=== PATIENT | female | born 1970 | race African-American/Black ===

== ENCOUNTER 2016-05-17 10:02 | Emergency (ER) | payer SELFPAY ==
--- NOTE | 2016-05-17 10:43 | ER Document Report ---
HPI - HPI Patient complains to provider of: headache, sore hip, flu like symptoms Onset: Other - LEACH last week, sore hip this am Pain Level: 4 Context: Patient presents to the emergency department with complaints of sinus headache feeling flulike , and sore hip. Patient reports she woke up this morning her hip was sore. She reports she thinks she slept on it wrong but denies pain at this time. No c/o trauma. Patient also reports she has a sinus headache. She reports she took Goody powders and it went away. Patient denies other symptoms such as fever vomiting diarrhea but reports some nausea earlier but none now. Patient is asymptomatic now. Associated Symptoms: Headache, Nausea. denies: Fever, Vomiting Exacerbated by: Denies Relieved by: Denies Similar symptoms previously: No Recently seen / treated by doctor: No - REPRODUCTIVE Reproductive: DENIES: : - DERM Skin Color: Normal, [place] Past Medical History - General Information source: Patient Last Menstrual Period: 05/15/16 - Social History Smoking Status: Current Every Day Smoker Cigarette use (# per day): Yes - 1ppd Chew tobacco use (# tins/day): No Frequency of alcohol use: None Drug Abuse: None Occupation: call center Lives with: Family Family History: Other - Migraines - Past Medical History Cardiac Medical History: Reports: Other - palpitations Neurological Medical History: Reports: Hx Migraine Renal/ Medical History: Denies: Hx Peritoneal Dialysis GI Medical History: Reports: Hx Irritable Bowel Infectious Medical History: Reports: Hx HIV - no meds in 2 months, has appt with new ID this month. last CD4 1600 Past Surgical History: Reports: Hx Section, Hx Gynecologic Surgery - novasure - Immunizations Immunizations up to date: Yes Hx Diphtheria, Pertussis, Tetanus Vaccination: Yes Vertical Provider Document - CONSTITUTIONAL Agree With Documented VS: Yes Exam Limitations: No Limitations General Appearance: WD/WN, No Apparent Distress - nontoxic looking - INFECTION CONTROL TRAVEL OUTSIDE OF THE U.S. IN LAST 30 DAYS: No - HEENT HEENT: Atraumatic, Normal ENT Exam, Normocephalic, PERRLA. negative: Conjuctival Injection, Pharyngeal Exudate, Pharyngeal Erythema, Tympanic Membrane Red - NECK Neck: Normal Inspection, Supple. negative: Lymphadenopathy-Left, Lymphadenopathy-Right - RESPIRATORY Respiratory: Breath Sounds Normal, No Respiratory Distress O2 Sat by Pulse Oximetry: 100 - CARDIOVASCULAR Cardiovascular: Regular Rate, Regular Rhythm - GI/ABDOMEN Gastrointestinal: Abdomen Soft, Abdomen Non-Tender - MUSCULOSKELETAL/EXTREMETIES Musculoskeletal/Extremeties: MAEW, FROM, Non-Tender - NEURO Level of Consciousness: Awake, Alert, Appropriate Motor/Sensory: No Motor Deficit - DERM Integumentary: Warm, Dry Course - Vital Signs Vital signs: Temp Pulse Resp BP Pulse Ox 98.2 F 72 20 120/78 100 05/17/16 10:13 05/17/16 10:13 05/17/16 10:13 05/17/16 10:13 05/17/16 10:13 Discharge - Discharge Clinical Impression: Sinus pressure, sore hip Headache Qualifiers: Headache type: unspecified Headache chronicity pattern: unspecified pattern Intractability: not intractable Qualified Code(s): R51 - Headache Condition: Stable Disposition: HOME, SELF-CARE Additional Instructions: *You have been evaluated for sinus pressure, headache, sore hip *Take over the counter antihistamine as discussed *Take goody powders for your headache *Good hand washing *Follow-up with your primary care provider within one week for recheck *Return to ED for worsening condition change, needs Forms: Return to Work
[2016-05-17 11:08] VITALS: BP 110/69
== END 2016-05-17 11:08 | disposition home or self-care (01) ==
LOC: ER 10:02
DX: R51 Headache (principal); M25.559 Pain in unspecified hip; R11.0 Nausea; F17.210 Nicotine dependence, cigarettes, uncomplicated; Z21 Asymptomatic human immunodeficiency virus [HIV] infection status
CPT/HCPCS: 99283

== ENCOUNTER 2016-06-25 11:27 | Emergency (ER) | payer SELFPAY ==
--- NOTE | 2016-06-25 12:08 | ER Document Report ---
ED Medical Screen (RME) - General Stated Complaint: BACK PAIN Notes: 46 yo female c/o bladder pressure, lower back pain x 4 days. + dysuria. no fever. no vomiting TRAVEL OUTSIDE OF THE U.S. IN LAST 30 DAYS: No - Related Data Allergies/Adverse Reactions: aspirin [Aspirin] Allergy (Verified 09/14/14 20:23) Sulfa (Sulfonamide Antibiotics) Allergy (Verified 09/14/14 20:23) Past Medical History Neurological Medical History: Reports: Hx Migraine Renal/ Medical History: Denies: Hx Peritoneal Dialysis GI Medical History: Reports: Hx Irritable Bowel Infectious Medical History: Reports: Hx HIV - no meds in 2 months, has appt with new ID this month. last CD4 1600 Past Surgical History: Reports: Hx Section, Hx Gynecologic Surgery - novasure - Immunizations Immunizations up to date: Yes Hx Diphtheria, Pertussis, Tetanus Vaccination: Yes Physical Exam - Vital signs Vitals: Temp Pulse Resp BP Pulse Ox 98.3 F 98 16 116/78 98 06/25/16 11:59 06/25/16 11:59 06/25/16 11:59 06/25/16 11:59 06/25/16 11:59 Course - Vital Signs Vital signs: Temp Pulse Resp BP Pulse Ox 98.3 F 98 16 116/78 98 06/25/16 11:59 06/25/16 11:59 06/25/16 11:59 06/25/16 11:59 06/25/16 11:59
[2016-06-25 12:56] LABS: APPEARANCE,URINE CLOUDY; BILIRUBIN,URINE NEGATIVE (NEGATIVE); GLUCOSE, URINE NEGATIVE (NEGATIVE); KETONES,URINE NEGATIVE (NEGATIVE); LEUKOCYTE ESTERASE,URINE LARGE (NEGATIVE); NITRITE,URINE NEGATIVE (NEGATIVE); PROTEIN,URINE 100 mg/dL (NEGATIVE); URINE SPECIFIC GRAVITY 1.023; UROBILINOGEN,URINE NEGATIVE mg/dL (<2.0)
--- NOTE | 2016-06-25 14:05 | ER Document Report ---
HPI - HPI Patient complains to provider of: low back pain and UTI symptoms Onset: Yesterday Onset/Duration: Gradual Quality of pain: Throbbing Pain Level: 4 Context: 46-year-old female is complaining of right-sided low back pain near her sacral iliac joint and urinary frequency urgency and dysuria with bladder spasms. No fever or chills. No nausea or vomiting. - REPRODUCTIVE LMP: 3 Reproductive: DENIES: : - DERM Skin Color: Normal, [place], Pale Past Medical History - General Information source: Patient - Social History Smoking Status: Current Every Day Smoker Drug Abuse: None Lives with: Family Family History: Other - Migraines Patient has suicidal ideation: No Patient has homicidal ideation: No Neurological Medical History: Reports: Hx Migraine Renal/ Medical History: Denies: Hx Peritoneal Dialysis GI Medical History: Reports: Hx Irritable Bowel Infectious Medical History: Reports: Hx HIV - no meds in 2 months, has appt with new ID this month. last CD4 1600 Past Surgical History: Reports: Hx Section, Hx Gynecologic Surgery - novasure - Immunizations Immunizations up to date: Yes Hx Diphtheria, Pertussis, Tetanus Vaccination: Yes Vertical Provider Document - CONSTITUTIONAL Agree With Documented VS: Yes - INFECTION CONTROL TRAVEL OUTSIDE OF THE [place].S. IN LAST 30 DAYS: No - HEENT HEENT: Normocephalic - NECK Neck: Supple - RESPIRATORY Respiratory: Breath Sounds Normal, No Respiratory Distress O2 Sat by Pulse Oximetry: 98 - CARDIOVASCULAR Cardiovascular: Regular Rate, Regular Rhythm - GI/ABDOMEN Gastrointestinal: Abdomen Soft, Abdomen Non-Tender, No Organomegaly - BACK Back: Normal Inspection. negative: CVA Tenderness-Right, CVA Tenderness-Left Notes: Tender right sacroiliac joint tenderness - MUSCULOSKELETAL/EXTREMETIES Musculoskeletal/Extremeties: MAEW, FROM, Non-Tender - NEURO Level of Consciousness: Awake, Alert Motor/Sensory: No Motor Deficit, No Sensory Deficit - DERM Integumentary: Warm, Dry, No Rash Course - Re-evaluation Re-evalutation: 06/26/16 11:54 obdulia called, macrobid too expensive for the pt. urine culture greater thatn 100,000 e coli, wants someting cheaper. Cipro 500mg bid #![id number]. [phone] \ 06/28/16 00:25 - Vital Signs Vital signs: Temp Pulse Resp BP Pulse Ox 98.3 F 98 16 116/78 98 06/25/16 11:59 06/25/16 11:59 06/25/16 11:59 06/25/16 11:59 06/25/16 11:59 - Laboratory Laboratory results interpreted by me: 06/25/16 12:10 Urine Protein 100 H Urine Blood MODERATE H Ur Leukocyte Esterase LARGE H Discharge - Discharge Clinical Impression: right sacroilitis Urinary tract infection Qualifiers: Urinary tract infection type: acute cystitis Hematuria presence: without hematuria Qualified Code(s): N30.00 - Acute cystitis without hematuria Condition: Good Disposition: HOME, SELF-CARE Instructions: Warm Packs ([facility]), Urinary Tract Infection ([facility]), Muscle Strain ( [facility]), Low Back Pain ([facility]), Nitrofurantoin ([facility]) Additional Instructions: Urine culture is pending Plenty of fluids Return to the emergency room if worse heat gentle stretching to back as instructed Please complete the patient satisfaction survey if you get one, and return it.. If you do not receive a survey, then you can go to the [facility] website, [email or web address] and place your comments about your very good care. Thank you very much. It was a pleasure being your medical provider today. Prescriptions: Nitrofurantoin/Nitrofuran Mac [Macrobid 100 mg Capsule] 100 mg PO BID #14 capsule
[2016-06-25 15:41] VITALS: BP 120/76
== END 2016-06-25 15:39 | disposition home or self-care (01) ==
LOC: ER 11:27
DX: N30.00 Acute cystitis without hematuria (principal); F17.200 Nicotine dependence, unspecified, uncomplicated; Z21 Asymptomatic human immunodeficiency virus [HIV] infection status
CPT/HCPCS: 81001; 87086; 87088; 87186; 99283

== ENCOUNTER 2016-08-19 08:24 | Emergency (ER) | payer SELFPAY ==
[2016-08-19] MEDS ORDERED: ONDANSETRON 4 MG TAB.RAPDIS PO ONE (09:29)
[2016-08-19] MEDS ORDERED: MECLIZINE HCL 12.5 MG TABLET PO ONE (09:29)
--- NOTE | 2016-08-19 09:41 | ER Document Report ---
HPI - HPI Patient complains to provider of: ear pain Pain Level: 3 Context: Patient is a 46-year-old female presents emergency Department complaining of left ear pain and dizziness since Thursday. She denies any trauma to either her ear or head, intermittent headaches but patient does have known history of migraines. He denies any light or sound sensitivity currently. She states that her symptoms get worse with head movement and she feels like she is spinning. Denies any other past medical problems. Goes to [facility] primary care. - CARDIOVASCULAR Cardiovascular: DENIES: Chest pain - REPRODUCTIVE LMP: 08/06/16 Reproductive: DENIES: : - DERM Skin Color: Normal Past Medical History - Social History Smoking Status: Never Smoker Family History: Other - Migraines Patient has suicidal ideation: No Patient has homicidal ideation: No Neurological Medical History: Reports: Hx Migraine Renal/ Medical History: Denies: Hx Peritoneal Dialysis GI Medical History: Reports: Hx Irritable Bowel Infectious Medical History: Reports: Hx HIV - no meds in 2 months, has appt with new ID this month. last CD4 1600 Past Surgical History: Reports: Hx Section, Hx Gynecologic Surgery - novasure, Hx Orthopedic Surgery - carpel tunnel - Immunizations Immunizations up to date: Yes Hx Diphtheria, Pertussis, Tetanus Vaccination: Yes Vertical Provider Document - CONSTITUTIONAL Agree With Documented VS: Yes Exam Limitations: No Limitations General Appearance: WD/WN, No Apparent Distress Notes: PHYSICAL EXAM GENERAL: Alert, interacts well. HEAD: Normocephalic, atraumatic. EYES: Pupils equal, round, and reactive to light. Extraocular movements intact. Able to close her eyes symmetrically bilaterally. ENT: Evidence of foreign body in the left ear canal. Removed the bedside evidence of cotton. Positive [place]-Hallpike maneuver to the left. Uvula midline. Airway patent. No evidence of tonsillar enlargement, peritonsillar abscess, retropharyngeal abscess. NECK: Full range of motion. Supple. Trachea midline. LUNGS: Clear to auscultation bilaterally, no wheezes, rales, or rhonchi. No respiratory distress. HEART: Regular rate and rhythm. No murmurs, gallops, or rubs. ABDOMEN: Soft, nondistended, nontender. No guarding, rebound, or rigidity.. Bowel sounds present in all 4 quadrants. EXTREMITIES: Moves all 4 extremities spontaneously. No edema, radial and dorsalis pedis pulses 2/4 bilaterally. No cyanosis. NEUROLOGICAL: Alert and oriented x4. Normal speech.Facial expressions are symmetrical bilaterally. No evidence of pronator drift. Gait normal PSYCH: Normal affect, normal mood. SKIN: Warm, dry, normal turgor. No rashes or lesions noted. - INFECTION CONTROL TRAVEL OUTSIDE OF THE [place] IN LAST 30 DAYS: No - RESPIRATORY O2 Sat by Pulse Oximetry: 99 Course - Re-evaluation Re-evalutation: 08/19/16 10:15 Patient is a 46-year-old female who presents with vertigo secondary to foreign body in ear canal. Removed the bedside. Patient given Antivert and nausea medication. Stable for discharge home and told to follow up with primary care as needed - Vital Signs Vital signs: Temp Pulse Resp BP Pulse Ox 98.5 F 108 H 18 120/78 99 08/19/16 08:30 08/19/16 08:30 08/19/16 08:30 08/19/16 08:30 08/19/16 08:30 Discharge - Discharge Clinical Impression: Vertigo Condition: Good Disposition: HOME, SELF-CARE Additional Instructions: If your symptoms do not improve in the next 48-72 hours please follow-up with your primary care physician Vertigo You have experienced an episode of vertigo -- a whirling dizziness which may be accompanied by nausea and vomiting or staggering. Vertigo is often caused by an irritation of the inner ear, in which case it is called labyrinthitis. It can also be a symptom of a degenerating inner ear, nerve damage, or brain injury. Your physician has evaluated you to determine whether any further testing is necessary. Vertigo is often treated with dramamine or meclizine. These medications are helpful, but stronger medication may be needed if you are vomiting. Rest in bed. You should not drive or operate machinery until completely better. It may take one to three weeks for recovery. If there are new symptoms, such as decreased hearing or vision, severe headache, weakness or faintness, or confusion, call the physician. Prescriptions: Meclizine HCl [Antivert 25 mg Tablet] 25 mg PO BIDP PRN #14 tablet PRN Reason: Ondansetron HCl [Zofran 4 mg Tablet] 1 - 2 tab PO Q4H PRN #10 tablet PRN Reason: Forms: Return to Work
[2016-08-19 10:06] VITALS: BP 100/61
== END 2016-08-19 10:06 | disposition home or self-care (01) ==
LOC: ER 08:24
DX: R42 Dizziness and giddiness (principal); H92.02 Otalgia, left ear
CPT/HCPCS: 99282

== ENCOUNTER → 2016-10-29 | Outpatient (CLI) | payer OTHER ==
--- NOTE | 2016-10-29 14:50 | WOMENS IMAGING REPORT ---
EXAM DESCRIPTION: BILAT SCREENING MAMMO W/CAD COMPLETED DATE/TIME: 10/29/2016 9:28 am REASON FOR STUDY: ROUTINE SCREENING; Z12.31 Z12.31 ENCNTR SCREEN MAMMOGRAM FOR MALIGNANT NEOPLASM O F LAVONNE COMPARISON: None. TECHNIQUE: Standard craniocaudal and mediolateral oblique views of each breast recorded using [employer] l acquisition. LIMITATIONS: None. FINDINGS: No masses, calcifications or architectural distortion. No areas of suspicion. Read with the assistance of CAD. .[facility] - R2 Cenova Version 1.3 .[facility] - R2 Cenova Version 1.3 .[facility] - R2 Cenova Version 2.4 .[facility] - R2 Cenova Version 2.4 .[facility] - R2 [employer] Version 9.2 IMPRESSION: NORMAL MAMMOGRAM. BIRADS 1. BREAST DENSITY: b. There are scattered areas of fibroglandular density. BIRAD: 1 NEGATIVE RECOMMENDATION: ROUTINE SCREENING COMMENT: The patient has been notified of the results by letter per SA requirements. Additional no tification policies are in place for contacting patient with suspicious or incomplete findings. Quality ID #[id number]: The [employer] recommends an annual screening mammogram for women aged 40 years or over. This facility utilizes a reminder system to ensure that all patients receive reminder letters, and/or direct phone calls for appointments. This includes reminders for routine scr eening mammograms, diagnostic mammograms, or other Breast Imaging Interventions when appropriate. Th is patient will be placed in the appropriate reminder system. The [employer] (ACR) has developed recommendations for screening MRI of the breast s in certain patient populations, to be used in conjunction with mammography. Breast MRI surveillanc e may be appropriate for women with more than 20% lifetime risk of developing breast cancer as deter mined by genetic testing, significant family history of the disease, or history of mantle radiation f or Hodgkins Disease. ACR Practice Guidelines 2008. TECHNICAL DOCUMENTATION: FINDING NUMBER: (1) ASSESSMENT: (1) JOB ID: [id number] [employer]- All Rights Reserved
== END ==
LOC: WI 09:01
DX: Z12.31 Encounter for screening mammogram for malignant neoplasm of breast (principal)
CPT/HCPCS: 77067; G0202

== ENCOUNTER → 2017-07-09 | Outpatient (CLI) | payer OTHER ==
[2017-07-09 11:26] LABS: ALANINE AMINOTRANSFERASE 21 U/L (9-52); ALBUMIN 4.1 g/dL (3.5-5.0); ALKALINE PHOSPHATASE 50 U/L (38-126); ANION GAP 10 (5-19); ASPARTATE AMINO TRANSFERASE 23 U/L (14-36); BILIRUBIN,DIRECT 0.1 mg/dL (0.0-0.4); BILIRUBIN,TOTAL 0.1 mg/dL (0.2-1.3); BLOOD UREA NITROGEN 15 mg/dL (7-20); CALCIUM 9.5 mg/dL (8.4-10.2); CARBON DIOXIDE 22 mmol/L (22-30); CHLORIDE 110 mmol/L (98-107); CHOLESTEROL 155.52 mg/dL (0-200); GLUCOSE 86 mg/dL (75-110); POTASSIUM 4.2 mmol/L (3.6-5.0); SODIUM 141.6 mmol/L (137-145); TOTAL PROTEIN 8.4 g/dL (6.3-8.2); TRIGLYCERIDES 98 mg/dL (<150)
[2017-07-09 11:37] LABS: DIRECT LDL 72 mg/dL (<100)
== END ==
LOC: CCC 10:24
DX: R51 Headache (principal); E66.3 Overweight
CPT/HCPCS: 36415; 80053; 80061; 84443

== ENCOUNTER 2019-04-10 12:29 | Emergency (ER) | payer SELFPAY ==
[2019-04-10 12:41] VITALS: BP 113/63
[2019-04-10] MEDS ORDERED: IPRATROPIUM/ALBUTEROL 0.5-2.5 MG/3 ML AMPUL NEB ONE (13:23)
[2019-04-10] MEDS ORDERED: BENZONATATE 100 MG CAPSULE PO ONE ×2 (13:24)
[2019-04-10] MEDS ORDERED: PREDNISONE 20 MG TABLET PO ONE (13:25)
--- NOTE | 2019-04-10 13:30 | ER Document Report ---
HPI - HPI Time Seen by Provider: 04/10/19 13:18 Pain Level: 3 Context: Patient is a 49-year-old female presents emergency department with a chief complaint of cough. She has had a cough for the past 3 days. She also has some rhinorrhea. States that she has had some green/yellow phlegm. Patient is an everyday smoker. Denies any fevers, but admits to body aches. Denies any past medical history. - ROS Systems Reviewed and Negative: Yes All other systems reviewed and negative - CONSTITUTIONAL Constitutional: REPORTS: Chills - EENT EENT: REPORTS: Ear Pain, Nasal Drainage-Clear, Nasal Drainage-Purulent, Congestion - NEURO Neurology: REPORTS: Headache - RESPIRATORY Respiratory: REPORTS: Trouble Breathing, Coughing - GASTROINTESTINAL Gastrointestinal: DENIES: Nausea, Patient vomiting, Diarrhea - REPRODUCTIVE Reproductive: DENIES: : - MUSCULOSKELETAL Musculoskeletal: DENIES: Extremity pain - DERM Skin Color: Normal Skin Problems: None Past Medical History - General Information source: Patient - Social History Smoking Status: Current Every Day Smoker Chew tobacco use (# tins/day): No Smoking Education Provided: Yes - greater than 3 minutes Frequency of alcohol use: Rare Drug Abuse: None Family History: Reviewed & Not Pertinent, Other - Migraines Patient has suicidal ideation: No Patient has homicidal ideation: No Neurological Medical History: Reports: Hx Migraine Renal/ Medical History: Denies: Hx Peritoneal Dialysis GI Medical History: Reports: Hx Irritable Bowel Infectious Medical History: Reports: Hx HIV - no meds in 2 months, has appt with new ID this month. last CD4 1600 Past Surgical History: Reports: Hx Section, Hx Gynecologic Surgery - n ovasure, Hx Orthopedic Surgery - carpel tunnel - Immunizations Immunizations up to date: Yes Hx Diphtheria, Pertussis, Tetanus Vaccination: Yes Vertical Provider Document - CONSTITUTIONAL Agree With Documented VS: Yes Exam Limitations: No Limitations General Appearance: No Apparent Distress - INFECTION CONTROL TRAVEL OUTSIDE OF THE [place]. IN LAST 30 DAYS: No - HEENT HEENT: Atraumatic, Normocephalic, PERRLA, Pharyngeal Erythema. negative: Pharyngeal Exudate, Tympanic Membrane Red, Tympanic Membrane Bulging - NECK Neck: Normal Inspection - RESPIRATORY Respiratory: Rhonchi - Bilateral lower lobes, Wheezing - Bilateral lower lobes - CARDIOVASCULAR Cardiovascular: Regular Rate, Regular Rhythm Pulses: Normal: Radial - GI/ABDOMEN Gastrointestinal: Abdomen Soft, Abdomen Non-Tender - MUSCULOSKELETAL/EXTREMETIES Musculoskeletal/Extremeties: FROM - NEURO Level of Consciousness: Awake, Alert, Appropriate Motor/Sensory: No Motor Deficit, No Sensory Deficit - DERM Integumentary: Warm, Dry, No Rash Course - Re-evaluation Re-evalutation: 04/10/19 14:23 I have reassessed the patient's lung sounds and they are now clear. She will be sent home with an albuterol inhaler. Positive for influenza B. Her chest x-ray shows possible pneumonia. She will be started on doxycycline. Patient is in agreement with this plan. Follow-up precautions were given. Verbal discharge instructions were given to the patient. They verbalized understanding. They are stable for discharge. - Vital Signs Vital signs: Temp Pulse Resp BP Pulse Ox 98.9 F 80 16 113/63 97 04/10/19 12:40 04/10/19 12:40 04/10/19 12:40 04/10/19 12:40 04/10/19 12:40 Discharge - Discharge Clinical Impression: Influenza B Pneumonia Qualifiers: Pneumonia type: due to unspecified organism Laterality: unspecified laterality Lung location: unspecified part of lung Qualified Code(s): J18.9 - Pneumonia, unspecified organism Condition: Stable Disposition: HOME, SELF-CARE Additional Instructions: You have been diagnosed with a pneumonia. It is very important that you take all of your antibiotics until they are gone even if you are feeling better. Please return to the emergency department immediately if you began having worsening shortness of breath, become confused, have worsening pain, pass out, have persistent vomiting that prevents you from being able to drink fluids for more than 12 hours, or have any other symptoms that are worrisome to you. Please follow-up with your primary care doctor in the next 1-2 days. You also have the flu. Please make sure you get plenty of rest and drink plenty of fluids. Prescriptions: Doxycycline Hyclate 100 mg PO BID #14 capsule Forms: Smoking Cessation Education, Return to Work Referrals: CORINNA HARMON CRNP [NO LOCAL MD] - Follow up in 3-5 days
--- NOTE | 2019-04-10 14:28 | RADIOLOGY REPORT (SQ) ---
EXAM DESCRIPTION: CHEST 2 VIEWS COMPLETED DATE/TIME: 04/10/2019 1:36 pm REASON FOR STUDY: cough COMPARISON: None. EXAM PARAMETERS: NUMBER OF VIEWS: two views TECHNIQUE: Digital Frontal and Lateral radiographic views of the chest acquired. RADIATION DOSE: NA LIMITATIONS: none FINDINGS: LUNGS AND PLEURA: Diffuse increased interstitial markings are present which could represen t atypical or mycoplasma pneumonia. No dense lobar consolidation. No pleural effusions. No pneumothorax. MEDIASTINUM AND HILAR STRUCTURES: No masses or contour abnormalities. HEART AND VASCULAR STRUCTURES: Heart normal size. No evidence for failure. BONES: No acute findings. HARDWARE: None in the chest. OTHER: No other significant finding. IMPRESSION: Diffuse increased interstitial markings are present which could indicate atypical or myc oplasma pneumonia in the proper clinical setting. Fluid overload/ interstitial edema could mimic thi s appearance TECHNICAL DOCUMENTATION: JOB ID: [id number] [employer]- All Rights Reserved Reading location - IP/workstation name: [email or web address]
[2019-04-10 14:33] LABS: A TYPE INFLUENZA AG NEGATIVE (NEGATIVE); B INFLUENZA AG POSITIVE (NEGATIVE)
[2019-04-10] MEDS ORDERED: CEFTRIAXONE INJ 1000 MG VIAL IM ONE (14:48)
[2019-04-10] MEDS ORDERED: LIDOCAINE 1% INJ-PF (10 MG/ML) 30 ML SDV INJ ONE (14:48)
[2019-04-10] MEDS ORDERED: ALBUTEROL SULFATE HFA (90 MCG/PUFF) 8 GM MDI (1 MDI/ER DISP) IH PRN (14:53)
== END 2019-04-10 15:18 | disposition home or self-care (01) ==
LOC: ER 12:29
DX: J18.9 Pneumonia, unspecified organism (principal); J11.1 Influenza due to unidentified influenza virus with other respiratory manifestations; F17.200 Nicotine dependence, unspecified, uncomplicated; B20 Human immunodeficiency virus [HIV] disease
CPT/HCPCS: 94640; 99283; 96372; 87804; 71046; J3490 ×2; J7512; J0696; J7620

== ENCOUNTER → 2019-05-12 | Outpatient (CLI) | payer OTHER ==
[2019-05-12 10:30] LABS: ABSOLUTE LYMPHOCYTES (AUTO) 0.6 10^3/uL (0.5-4.7); ABSOLUTE MONOCYTES (AUTO) 0.2 10^3/uL (0.1-1.4); ABSOLUTE NEUT (AUTO) 1.4 10^3/uL (1.7-8.2); BASOPHILS % (AUTO) 1.5 % (0-2); EOSINOPHILS % (AUTO) 1.3 % (0-6); HEMATOCRIT 37.7 % (36.0-47.0); HEMOGLOBIN 13.1 g/dL (12.0-15.5); LYMPHOCYTES % (AUTO) 26.3 % (13-45); MEAN CORPUSCULAR HEMOGLOBIN 33.6 pg (27.0-33.4); MEAN CORPUSCULAR HGB CONC 34.9 g/dL (32.0-36.0); MEAN CORPUSCULAR VOLUME 96 fl (80-97); MONOCYTES % (AUTO) 10.2 % (3-13); PLATELET COUNT 194 10^3/uL (150-450); RED BLOOD COUNT 3.91 10^6/uL (3.72-5.28); RED CELL DISTRIBUTION WIDTH 13.7 % (11.5-14.0); SEGMENTED NEUTROPHILS % (AUTO) 60.7 % (42-78); TOTAL CELLS COUNTED % (AUTO) 100 %; WHITE BLOOD COUNT 2.3 10^3/uL (4.0-10.5)
[2019-05-12 10:59] LABS: ALBUMIN 4.1 g/dL (3.5-5.0); ALKALINE PHOSPHATASE 57 U/L (38-126); ANION GAP 9 (5-19); ASPARTATE AMINO TRANSFERASE 26 U/L (14-36); BILIRUBIN,TOTAL 0.3 mg/dL (0.2-1.3); BLOOD UREA NITROGEN 13 mg/dL (7-20); CALCIUM 9.1 mg/dL (8.4-10.2); CARBON DIOXIDE 18 mmol/L (22-30); CHLORIDE 113 mmol/L (98-107); CHOLESTEROL 157.58 mg/dL (0-200); GLUCOSE 88 mg/dL (75-110); POTASSIUM 4.2 mmol/L (3.6-5.0); TOTAL PROTEIN 8.6 g/dL (6.3-8.2); TRIGLYCERIDES 87 mg/dL (<150)
[2019-05-12 11:11] LABS: DIRECT LDL 103 mg/dL (<100)
--- NOTE | 2019-05-12 12:16 | RADIOLOGY REPORT (SQ) ---
EXAM DESCRIPTION: CHEST PA/LATERAL COMPLETED DATE/TIME: 05/12/2019 10:07 am REASON FOR STUDY: LOBAR PNEUMONIA, UNSPECIFIED ORGANISM COMPARISON: Two-view chest 04/10/2019 EXAM PARAMETERS: NUMBER OF VIEWS: two views TECHNIQUE: Digital Frontal and Lateral radiographic views of the chest acquired. RADIATION DOSE: NA LIMITATIONS: none FINDINGS: LUNGS AND PLEURA: Mild persistent increased interstitial markings at both lung bases, ques tion atypical pneumonia. Pattern is less prominent than on 04/10/2019. No pleural effusions. No pneumothorax. MEDIASTINUM AND HILAR STRUCTURES: No masses or contour abnormalities. HEART AND VASCULAR STRUCTURES: Heart normal size. No evidence for failure. BONES: No acute findings. HARDWARE: None in the chest. OTHER: No other significant finding. IMPRESSION: Persistent mild increased interstitial markings, less prominent than on chest film 020 TECHNICAL DOCUMENTATION: JOB ID: [id number] [employer]- All Rights Reserved Reading location - IP/workstation name: [email or web address]
== END ==
LOC: OD 09:50
DX: Z00.00 Encounter for general adult medical examination without abnormal findings (principal); J18.1 Lobar pneumonia, unspecified organism
CPT/HCPCS: 36415; 71046; 80053; 80061; 83036; 85025

== ENCOUNTER → 2020-01-23 | Outpatient (CLI) | payer OTHER ==
[2020-01-23 18:21] LABS: ABSOLUTE LYMPHOCYTES (AUTO) 0.9 10^3/uL (0.5-4.7); ABSOLUTE MONOCYTES (AUTO) 0.2 10^3/uL (0.1-1.4); BASOPHILS % (AUTO) 0.7 % (0-2); EOSINOPHILS % (AUTO) 0.7 % (0-6); HEMATOCRIT 36.7 % (36.0-47.0); LYMPHOCYTES % (AUTO) 29.5 % (13-45); MEAN CORPUSCULAR HEMOGLOBIN 34.3 pg (27.0-33.4); MEAN CORPUSCULAR HGB CONC 35.4 g/dL (32.0-36.0); MEAN CORPUSCULAR VOLUME 97 fl (80-97); MONOCYTES % (AUTO) 6.5 % (3-13); PLATELET COUNT 150 10^3/uL (150-450); RED BLOOD COUNT 3.79 10^6/uL (3.72-5.28); RED CELL DISTRIBUTION WIDTH 13.3 % (11.5-14.0); SEGMENTED NEUTROPHILS % (AUTO) 62.6 % (42-78); TOTAL CELLS COUNTED % (AUTO) 100 %; WHITE BLOOD COUNT 3.1 10^3/uL (4.0-10.5)
== END ==
LOC: OD 17:13
PROVIDERS: ATTEND Family Medicine
DX: D72.818 Other decreased white blood cell count (principal)
CPT/HCPCS: 36415; 85025

== ENCOUNTER → 2020-02-09 | Outpatient (CLI) | payer OTHER ==
--- NOTE | 2020-02-09 12:48 | RADIOLOGY REPORT (SQ) ---
EXAM DESCRIPTION: CHEST PA/LATERAL IMAGES COMPLETED DATE/TIME: 02/09/2020 12:13 pm REASON FOR STUDY: BRONCHITIS COMPARISON: 05/12/2019 EXAM PARAMETERS: NUMBER OF VIEWS: two views TECHNIQUE: Digital Frontal and Lateral radiographic views of the chest acquired. RADIATION DOSE: NA LIMITATIONS: none FINDINGS: LUNGS AND PLEURA: Persistent prominent interstitial markings most marked in the lung bases . No focal consolidation. No pneumothorax. MEDIASTINUM AND HILAR STRUCTURES: No masses or contour abnormalities. HEART AND VASCULAR STRUCTURES: Heart normal size. No evidence for failure. BONES: No acute findings. HARDWARE: None in the chest. OTHER: No other significant finding. IMPRESSION: Persistent bibasilar interstitial airspace disease unchanged from May. TECHNICAL DOCUMENTATION: JOB ID: [id number] [employer]- All Rights Reserved Reading location - IP/workstation name: [email or web address]
[2020-02-09 12:54] LABS: ABSOLUTE LYMPHOCYTES (AUTO) 0.8 10^3/uL (0.5-4.7); ABSOLUTE MONOCYTES (AUTO) 0.2 10^3/uL (0.1-1.4); ABSOLUTE NEUT (AUTO) 2.3 10^3/uL (1.7-8.2); ABSOLUTE RETICS # 0.043 10^6/uL (0.028-0.122); BASOPHILS % (AUTO) 0.8 % (0-2); EOSINOPHILS % (AUTO) 0.5 % (0-6); HEMATOCRIT 36.5 % (36.0-47.0); HEMOGLOBIN 13.1 g/dL (12.0-15.5); MEAN CORPUSCULAR HEMOGLOBIN 34.3 pg (27.0-33.4); MEAN CORPUSCULAR HGB CONC 35.7 g/dL (32.0-36.0); MEAN CORPUSCULAR VOLUME 96 fl (80-97); PLATELET COUNT 170 10^3/uL (150-450); RED BLOOD COUNT 3.81 10^6/uL (3.72-5.28); RED CELL DISTRIBUTION WIDTH 12.8 % (11.5-14.0); RETICULOCYTE COUNT (AUTO) 1.13 % (0.66-2.85); SEGMENTED NEUTROPHILS % (AUTO) 69.7 % (42-78); TOTAL CELLS COUNTED % (AUTO) 100 %; WHITE BLOOD COUNT 3.3 10^3/uL (4.0-10.5)
[2020-02-09 13:15] LABS: ALBUMIN 3.8 g/dL (3.5-5.0); ALKALINE PHOSPHATASE 77 U/L (38-126); ANION GAP 8 (5-19); ASPARTATE AMINO TRANSFERASE 32 U/L (14-36); BILIRUBIN,DIRECT 0.1 mg/dL (0.0-0.4); BILIRUBIN,TOTAL 0.3 mg/dL (0.2-1.3); BLOOD UREA NITROGEN 10 mg/dL (7-20); CALCIUM 8.9 mg/dL (8.4-10.2); CARBON DIOXIDE 19 mmol/L (22-30); CHLORIDE 111 mmol/L (98-107); CHOLESTEROL 150.33 mg/dL (0-200); GLUCOSE 82 mg/dL (75-110); POTASSIUM 3.9 mmol/L (3.6-5.0); TOTAL PROTEIN 8.8 g/dL (6.3-8.2); TRIGLYCERIDES 136 mg/dL (<150)
[2020-02-09 13:26] LABS: DIRECT LDL 80 mg/dL (<100)
[2020-02-09 14:19] LABS: FOLATE 6.74 ng/mL (>2.76)
--- NOTE | 2020-02-09 18:09 | EKG REPORT ---
SEVERITY:- NORMAL ECG - SINUS RHYTHM : Confirmed by: Mathew Griffin MD 09-Feb-2020 18:08:13
== END ==
LOC: CCC 11:10
PROVIDERS: ATTEND Family Medicine
DX: J40 Bronchitis, not specified as acute or chronic (principal); D72.819 Decreased white blood cell count, unspecified; G43.909 Migraine, unspecified, not intractable, without status migrainosus; Z13.9 Encounter for screening, unspecified; Z79.899 Other long term (current) drug therapy
CPT/HCPCS: 36415; 71046; 80053; 80061; 82607; 82746; 83036; 84443; 85025; 85045; 93005; 93010; 93041; 93042